=== PATIENT | female | born 1950 | race Two or more races ===

== ENCOUNTER 2022-09-10 08:18 | Inpatient (IN) | payer OTHER ==
[~2022-09-10] VITALS: Ht 152.4 cm; Wt 90.8 kg
[~2022-09-10 08:18] MED LIST: ENAL20TA8 PO; LEVO75TA6 PO; NAP500T PO
[2022-09-10] MEDS ORDERED: ceFAZolin 1GM/50ML 100 ML IV ONE (08:31)
[2022-09-10] MEDS ORDERED: EPINEPHrine HCL 1 MG/1 ML AMP ONE (10:37)
[2022-09-10] MEDS ORDERED: VANCOMYCIN HCL 1000 MG VL ONE (10:37)
[2022-09-10] MEDS ORDERED: ROPIVACAINE 0.5% (5MG/ML) 20ML AMPULE IJ ONE (10:38)
[2022-09-10] MEDS ORDERED: SODIUM CHLORIDE LOCK 10 ML ONE (11:14)
[2022-09-10] MEDS ORDERED: ePHEDrine SULFATE 50 MG/ML AMP ONE (11:33)
[2022-09-10] MEDS: TRANEXAMIC ACID 20 ML ONE ×2 (11:35→12:34)
[2022-09-10] MEDS ORDERED: LIDOCAINE 2% (LOCAL ANESTH.) PF 5ml SDV ONE (11:50)
[2022-09-10] MEDS ORDERED: KETOROLAC TROMETH 30 MG/ML 1ML VIAL ONE (11:50)
[2022-09-10] MEDS ORDERED: PROPOFOL 10 MG/ML 20 ML IV ONE ×2 (11:50→12:02)
[2022-09-10] MEDS ORDERED: GLYCOPYRROLATE 0.2 MG/ML 1ML VIAL ONE (11:50)
[2022-09-10] MEDS ORDERED: ONDANSETRON HCL 4 MG/2 ML VIAL ONE (11:50)
[2022-09-10] MEDS ORDERED: ONDANSETRON HCL 4 MG/2 ML VIAL IV PRN (13:00)
[2022-09-10] MEDS ORDERED: oxyCODONE HCL 5MG TAB PO PRN ×2 (13:00)
[2022-09-10] MEDS ORDERED: ceFAZolin 2 GM in D5W 5% 100 ML IV SCH (14:00)
[2022-09-10] MEDS ORDERED: HYDROmorphone HCL 2 MG/ML VL/or syr ONE (15:51)
[2022-09-10] MEDS: HYDROmorphone HCL 2 MG/ML VL/or syr IV PRN ×2 (15:55→16:10)
[2022-09-10 16:20] VITALS: BP 163/86
[2022-09-10] MEDS ORDERED: PHENYLEPHRINE HCL 10 MG/ML VL IV ONE (16:29)
[2022-09-10] MEDS ORDERED: KETAMINE 50mg/ML 10ml Vial (500mg/10ml) IV ONE (16:29)
[2022-09-10 16:35] VITALS: BP 163/86
[2022-09-10] MEDS: KETOROLAC TROMETH 30 MG/ML 1ML VIAL IV SCH (19:46)
[2022-09-10] MEDS: ACETAMINOPHEN 325 MG TAB PO SCH (19:47)
[2022-09-10 20:00] VITALS: BP 135/68
[2022-09-10] MEDS: ceFAZolin 2 GM in D5W 5% 100 ML IV SCH (20:46)
[2022-09-10] MEDS: D5W/LACTATED RINGERS 1,000 ML IV SCH ×2 (20:47→23:00)
[2022-09-10] MEDS: DOCUSATE SOD 100 MG CAP PO SCH (21:13)
[2022-09-10] MEDS: ASPirin 81 mg TAB PO SCH (21:13)
[2022-09-10] MEDS: PREGABALIN 25 MG CAP PO SCH (21:14)
[2022-09-10 22:00] VITALS: BP 135/68
[2022-09-10] MEDS ORDERED: SENNA 8.6 MG TAB PO SCH (22:00)
[2022-09-11] MEDS: KETOROLAC TROMETH 30 MG/ML 1ML VIAL IV SCH ×3 (00:27→11:54)
[2022-09-11] MEDS: ACETAMINOPHEN 325 MG TAB PO SCH ×3 (00:27→11:54)
[2022-09-11 05:00] VITALS: BP_SYST 133
[2022-09-11] MEDS: ceFAZolin 2 GM in D5W 5% 100 ML IV SCH (05:39)
[2022-09-11 06:08] LABS: Basophils # (auto) 0 10 ^3/uL (0-0.2); Basophils % (auto) 0.1 % (0.0-2.0); Eosinophils # (auto) 0 10 ^3/uL (0-0.8); Hematocrit 37.4 % (36.0-46.0); Hemoglobin 12.1 g/dL (12.2-16.2); Lymphocytes # (auto) 1.1 10 ^3/uL (0.4-5.4); Lymphocytes % (auto) 6.4 % (10.0-50.0); Mean Corpuscular Hemoglobin 27.4 pg (28.0-32.0); Mean Corpuscular Hgb Conc. 32.3 g/dL (32.0-36.0); Mean Corpuscular Volume 84.8 fL (80.0-100.0); Monocytes # (auto) 1.1 10 ^3/uL (0-1.3); Monocytes % (auto) 6.7 % (0.0-12.0); Neutrophils # (auto) 14.5 10 ^3/uL (1.6-8.6); Neutrophils % (auto) 86.8 % (37.0-80.0); Red Blood Cells 4.41 10^6/uL (4.0-5.20); Red Cell Distribution Width 14.3 % (11.8-14.3); White Blood Cell 16.7 10^3/uL (4.4-10.8)
[2022-09-11 06:31] LABS: BUN/Creatinine Ratio 20.2; Calcium 8.7 mg/dL (8.5-10.1); Potassium 4.2 mmol/L (3.5-5.1)
[2022-09-11 08:00] VITALS: BP 137/63
[2022-09-11 09:00] VITALS: BP 148/74
[2022-09-11] MEDS: PREGABALIN 25 MG CAP PO SCH (09:02)
[2022-09-11] MEDS: DOCUSATE SOD 100 MG CAP PO SCH (09:02)
[2022-09-11] MEDS: ASPirin 81 mg TAB PO SCH (09:03)
[2022-09-11] MEDS: D5W/LACTATED RINGERS 1,000 ML IV SCH (09:03)
[2022-09-11] MEDS ORDERED: LEVOTHYROXINE SODIUM PO SCH (10:00)
[2022-09-11] MEDS ORDERED: PANTOPRAZOLE 40 MG TAB PO SCH (10:00)
[2022-09-11] MEDS ORDERED: ENALAPRIL MALEATE 10 MG TAB PO SCH (10:00)
[2022-09-11] MEDS ORDERED: ENALAPRIL MALEATE 20 MG PO SCH (10:00)
[2022-09-11 13:00] VITALS: BP 137/63
[2022-09-11 14:30] VITALS: BP 137/63
== END 2022-09-11 16:30 | disposition home health service (06) | DRG 470 ==
LOC: SUR 08:18 → OVERFLOW 13:00 → CENTRAL 16:45
PROVIDERS: ADMIT Orthopaedic Surgery; ATTEND Orthopaedic Surgery
PROC: 0SRC069 Replacement of Right Knee Joint with Oxidized Zirconium on Polyethylene Synthetic Substitute, Cemented, Open Approach (ICD-10-PCS; principal; 2022-09-10 10:57)
DX: M17.11 Unilateral primary osteoarthritis, right knee (principal); Z20.822 Contact with and (suspected) exposure to COVID-19
CPT/HCPCS: 36415; 73562; 80048; 85025; 86850; 86900; 86901; 97163; G0378; J0171; J0690; J1885; J2001; J2405; J2704; J7060

== ENCOUNTER 2024-10-08 08:41 | Emergency (ER) | payer OTHER ==
[~2024-10-08] VITALS: Ht 182.9 cm; Wt 72.0 kg
[~2024-10-08 08:41] MED LIST changes: +ENAL1TAB48 PO; -ENAL20TA8 PO
--- NOTE | 2024-10-08 09:21 | ED.PDOC ---
History of Present Illness HPI Comments 63 y.o female presents to the ED for a chief complaint of flu like symptoms that include cough, congestion, fever, chest discomfort, and dizziness that presented 2 days ago. Patient reports heart rate at home has been elevated via home pulse oximetry machine readings. Patient presents with SPO2 of 91-92% RA and was placed on 4LNC increasing saturation to 97%. Patient denies any at home oxygen use, nausea, vomiting, diarrhea, chills, or SOB. Chief Complaint: Flu like Time Seen by MD: 09:11 Reviewed Notes: Nurses Notes, Medications, Allergies Allergies: Coded Allergies: Latex (Unverified Allergy, Mild, hives, 09/09/22) Home Meds Reported Medications Naproxen (NAPROSYN TABLET) 500 Mg Tb, 500 MG PO BID, TAB 09/09/22 Levothyroxine Sodium (Levothyroxine Sodium) 75 Mcg Tab, 32 MCG PO DAILY, TAB 09/09/22 Enalapril Maleate (Enalapril Maleate) 20 Mg Tab, 20 MG PO DAILY, TAB 09/09/22 Information Source: Patient, Spouse Mode of Arrival: Ambulatory Severity: Moderate Timing: Days (2) Duration: Since onset Past Medical History PAST MEDICAL HISTORY: Denies Surgical History: Denies all surgeries AGRICULTURAL EDUCATION INSTRUCTOR History: No Pertinent AGRICULTURAL EDUCATION INSTRUCTOR History Family History Family History: Reviewed,noncontributory to illness Social History Smoker: Non-Smoker Alcohol: Denies ETOH Use Drugs: Denies Drug Use Lives In: Home Constitutional: reports: fever; denies: chills, diaphoresis, fatigue, malaise, sweats, weakness, others EENTM: reports: nose congestion; denies: blurred vision, double vision, ear bleeding, ear discharge, ear drainage, ear pain, ear ringing, eye pain, eye redness, hearing loss, mouth pain, mouth swelling, nasal discharge, nose bleeding, nose pain, photophobia, tearing, throat pain, throat swelling, voice changes, others Respiratory: reports: cough; denies: hemoptysis, orthopnea, SOB at rest, shortness of breath, SOB with excertion, stridor, wheezing, others Cardiovascular: reports: chest pain; denies: dizzy spells, diaphoresis, Dyspnea on exertion, edema, irregular heart beat, left arm pain, lightheadedness, palpitations, PND, syncope, others Gastrointestinal: denies: abdomen distended, abdominal pain, blood streaked bowels, constipated, diarrhea, dysphagia, difficulty swallowing, hematemesis, melena, nausea, poor appetite, poor fluid intake, rectal bleeding, rectal pain, vomiting, others Genitourinary: denies: abnormal vagina bleeding, burning, dyspareunia, dysuria, flank pain, frequency, hematuria, incontinence, pain, , vagina discharge, urgency, others Neurological: reports: dizziness; denies: fainting, headache, left sided numbness, left sided weakness, numbness, paresthesia, pre-existing deficit, right sided numbness, right sided weakness, seizure, speech problems, tingling, tremors, weakness, others Musculoskeletal: denies: back pain, gout, joint pain, joint swelling, muscle pain, muscle stiffness, neck pain, others Integumetry: denies: bruises, change in color, change in hair/nails, dryness, laceration, lesions, lumps, rash, wounds, others Allergic/Immunocompromised: denies: Difficulty Healing, Frequent Infections, Hives, Itching, others Hematologic/Lymphatic: denies: anemia, blood clots, easy bleeding, easy bruising, swollen glands, others Endocrine: denies: excessive hunger, excessive sweating, excessive thirst, excessive urination, flushing, intolerance to cold, intolerance to heat, unexplained weight gain, unexplained weight loss, others Psychiatric: denies: anxiety, bipolar disorder, depression, hopeless, panic disorder, schizophrenia, sleepless, suicidal, others All Other Systems: Reviewed and Negative Physical Exam General Appearance: No Apparent Distress, Normal HEENT: Normal ENT Inspection, PERRL/EOMI Neck: Full Range of Motion, Non-Tender Respiratory: Lungs Clear, No Respiratory Distress, Normal Breath Sounds Cardiovascular: No Edema, No JVD, No Murmur, No Gallop, Normal Peripheral Pulses, Regular Rate/Rhythm, Tachycardia Breast Exam: Deferred Gastrointestinal: No Organomegaly, Non Tender, No Pulsatile Mass, Normal Bowel Sounds, Soft Genitalia: Deferred Pelvic: Deferred Rectal: Deferred Extremities: No calf tenderness, Normal capillary refill, Normal inspection, Normal range of motion, Non-tender, No pedal edema Neurologic: Alert, blanket cutter hand II-XII nml as Tested, No Motor Deficits, Normal Affect, Normal Mood, No Sensory Deficits Cerebellar Function: Normal Reflexes: Normal Skin: Dry, Normal Color, Warm Peripheral Pulses: 1+ carotid (R), 1+ carotid (L) Lymphatic: No Adenopathy Was a procedure done? Was a procedure done?: No Differential Dx Considerations may include: Influenza, Viral Syndrome, Dehydration, URI X-Ray, Labs, Meds, VS Vital Signs Date Time Temp Pulse Resp B/P (MAP) Pulse Ox O2 Delivery O2 Flow Rate FiO2 10/08/24 15:49 99.5 96 16 117/78 (91) 99 99.5 10/08/24 13:00 99.5 110 16 123/68 (86) 98 99.5 10/08/24 10:50 99.5 115 16 127/79 (95) 98 99.5 10/08/24 08:50 129 10/08/24 08:47 100.0 128 20 145/76 (99) 97 Lab Test 10/08/24 14:54 10/08/24 13:07 10/08/24 10:21 Range/Units Influenza Type A Antigen Negative Negative Influenza Type B Antigen Negative Negative SARS-CoV-2 Antigen (Rapid) Negative NEGATIVE Urine Color Yellow Yellow Urine Clarity Clear Clear Urine pH 5.5 5.0-9.0 Urine Specific [place] 1.027 1.001-1.035 Urine Protein 1+ H Negative Urine Ketones 1+ H Negative Urine Blood Negative Negative /uL Urine Nitrite Negative Negative Urine Bilirubin Negative Negative Urine Urobilinogen Normal Negative mg/dL Urine Leukocyte Esterase Negative Negative /uL Urine RBC 4 0 - 4 /hpf Urine WBC 1 0 - 5 /hpf Urine Squamous Epithelial Cells Few <5 /hpf Urine Bacteria None seen None Seen /hpf Urine Mucus Few None Seen Urine Glucose Normal Normal mg/dL White Blood Count 6.5 4.4-10.8 10^3/uL Red Blood Count 5.18 4.0-5.20 10^6/uL Hemoglobin 16.0 12.2-16.2 g/dL Hematocrit 46.8 H 36.0-46.0 % Mean Corpuscular Volume 90.3 80.0-100.0 fL Mean Corpuscular Hemoglobin 30.9 28.0-32.0 pg Mean Corpuscular Hemoglobin Concent 34.2 32.0-36.0 g/dL Red Cell Distribution Width 13.5 11.8-14.3 % Platelet Count 181 140-450 10^3/uL Mean Platelet Volume 10.5 6.9-10.8 fL Neutrophils (%) (Auto) 63.8 37.0-80.0 % Lymphocytes (%) (Auto) 24.3 10.0-50.0 % Monocytes (%) (Auto) 11.5 0.0-12.0 % Eosinophils (%) (Auto) 0.0 0.0-7.0 % Basophils (%) (Auto) 0.4 0.0-2.0 % Neutrophils # (Auto) 4.1 1.6-8.6 10 ^3/uL Lymphocytes # (Auto) 1.6 0.4-5.4 10 ^3/uL Monocytes # (Auto) 0.7 0-1.3 10 ^3/uL Eosinophils # (Auto) 0 0-0.8 10 ^3/uL Basophils # (Auto) 0 0-0.2 10 ^3/uL Nucleated Red Blood Cells 0.4 % Prothrombin Time 11.2 9.3-11.8 sec Prothrombin Time INR 1.06 0.9-1.15 Activated Partial Thromboplast Time 29.2 24.5-34.5 SEC D-Dimer, Quantitative 0.44 0.0-0.49 mg/L FEU Sodium Level 139 136-145 mmol/L Potassium Level 4.0 3.5-5.1 mmol/L Chloride Level 105 98-107 mmol/L Carbon Dioxide Level 28 20-31 mmol/L Anion Gap 6 5-15 Blood Urea Nitrogen 12 9-23 mg/dL Creatinine 1.03 H 0.550-1.02 mg/dL Glomerular Filtration Rate Calc 60 >90 mL/min BUN/Creatinine Ratio 11.7 10.0-20.0 Serum Glucose 107 H 74-106 mg/dL Calcium Level 10.3 8.7-10.4 mg/dL Magnesium Level 2.1 1.6-2.6 mg/dL Total Bilirubin 1.0 0.2-1.0 mg/dL Aspartate Amino Transferase (AST) 56 H 13-40 U/L Alanine Aminotransferase (ALT) 44 H 7-40 U/L Alkaline Phosphatase 78 46-116 U/L Troponin I High Sensitivity < 3 L </=34 ng/L Total Protein 8.0 5.7-8.2 g/dL Albumin 5.1 H 3.2-4.8 g/dL Thyroid Stimulating Hormone (TSH) 0.89 0.55-4.78 uIU/mL Current Medications Medications (Trade) Dose Ordered Sig/Ludy Route Start Time Stop Time Status Last Admin Aspirin 162 mg ONCE ONCE PO 10/08/24 10:00 10/08/24 10:01 DC 10/08/24 10:00 Sodium Chloride 1,000 ml @ 150 mls/hr [id number] ONCE IV 10/08/24 10:00 10/08/24 16:39 DC 10/08/24 10:00 CHEST RADIOGRAPH Indication: Chest pain tachycardia Technique: Frontal and lateral view of the chest was obtained Comparison: None FINDINGS: Lines and Tubes: None Lungs: Clear Pleura: No effusion. No pneumothorax. Cardiomediastinal contours: Unremarkable Bones: Unremarkable IMPRESSION: No evidence of acute disease. X-Ray, Labs, Meds, VS Comment Course in the emergency department eventful patient came in because of flu syndrome and tachycardia Blood pressure 145/76 Chest x-ray normal EKG shows sinus tachycardia at 129 with right bundle-branch block CBC normal INR 1.06 D-dimer 0.44 Magnesium 2.1 Troponin 3.0 TSH 0.89 Urine negative INFLUENZA A NEGATIVE INFLUENZA B NEGATIVE COVID-19 NEGATIVE Re-evaluation PATIENT IS FEELING MUCH BETTER HER PULSE 9 IS AT 90 PATIENT WILL BE DISCHARGED HOME TO FOLLOW UP WITH HER PCP Time of 1ST Reevaluation: 09:17 Reevaluation 1ST: Unchanged Time of 2ND Reevaluation: 16:49 Consultation: PCP Patient Education/Counseling: Diagnosis, Treatment, Prognosis, Need For Follow Up Family Education/Counseling: Diagnosis, Treatment, Prognosis, Need For Follow Up Departure 1 Departure Time of Disposition: 16:50 Impression: Primary Impression: Tachycardia determined by examination of pulse Additional Impressions: Viral syndrome URI with cough and congestion Lab test negative for COVID-19 virus Influenza A virus not detected Influenza B virus not detected Ruled Out: Pulmonary embolism, Pneumonia Disposition: 01 HOME / SELF CARE / HOMELESS Condition: Fair Additional Instructions: PUSH FLUIDS AND FOLLOW UP WITH YOUR PCP e-Prescriptions Azithromycin (Zithromax) 500 Mg Tab 1 TAB PO DAILY for 5 Days, #5 TAB Prov: KYUNG MULLINS MD 10/08/24 [id number] W/ APAP (Robitussin Severe Mul... [id number] mg/10Ml) 1 Liq Liq 1 LIQ PO BID for 10 Days, #300 LIQ Prov: KYUNG MULLINS MD 10/08/24 Discharged With: Self, Spouse Critical Care Note Critical Care Time?: No Stability Stability form required: No Heart Score Heart Score: Heart Score Response (Comments) Value History Slightly Suspicious 0 EKG Repolarization Disturb 1 Age >65 2 Risk Factors No known risk factors 0 Troponin Normal limit 0 Total 3 I personally scribed for KYUNG MULLINS MD ([email or web address]) on 10/08/24 at 09:21. Electronically submitted by Margarita Mcpherson ([email or web address]). I personally scribed for KYUNG MULLINS MD ([email or web address]) on 10/08/24 at 11:03. Electronically submitted by Margarita Mcpherson ([email or web address]). KYUNG MULLINS MD Oct 08, 2024 09:21
[2024-10-08] MEDS: ASPirin 81 mg TAB PO ONE (10:00)
[2024-10-08] MEDS: SODIUM CHLORIDE 0.9% 1,000 ML IV ONE (10:00)
--- NOTE | 2024-10-08 10:25 | DVH ---
CHEST RADIOGRAPH Indication: Chest pain tachycardia Technique: Frontal and lateral view of the chest was obtained Comparison: None FINDINGS: Lines and Tubes: None Lungs: Clear Pleura: No effusion. No pneumothorax. Cardiomediastinal contours: Unremarkable Bones: Unremarkable IMPRESSION: No evidence of acute disease.
[2024-10-08 10:54] LABS: Alkaline Phosphatase 78 U/L (46-116); Anion Gap 6 (5-15); BUN/Creatinine Ratio 11.7 (10.0-20.0); Blood Urea Nitrogen 12 mg/dL (9-23); Calcium 10.3 mg/dL (8.7-10.4); Carbon Dioxide 28 mmol/L (20-31); Chloride 105 mmol/L (98-107); Magnesium 2.1 mg/dL (1.6-2.6); Sodium 139 mmol/L (136-145)
[2024-10-08 11:07] LABS: Alanine Aminotransferase 44 U/L (7-40); Albumin 5.1 g/dL (3.2-4.8); Aspartate Aminotransferase 56 U/L (13-40); Glucose 107 mg/dL (74-106)
[2024-10-08 11:25] LABS: Basophils # (auto) 0 10 ^3/uL (0-0.2); Basophils % (auto) 0.4 % (0.0-2.0); Eosinophils # (auto) 0 10 ^3/uL (0-0.8); Hematocrit 46.8 % (36.0-46.0); Lymphocytes # (auto) 1.6 10 ^3/uL (0.4-5.4); Lymphocytes % (auto) 24.3 % (10.0-50.0); Mean Corpuscular Hemoglobin 30.9 pg (28.0-32.0); Mean Corpuscular Hgb Conc. 34.2 g/dL (32.0-36.0); Mean Corpuscular Volume 90.3 fL (80.0-100.0); Monocytes # (auto) 0.7 10 ^3/uL (0-1.3); Monocytes % (auto) 11.5 % (0.0-12.0); Neutrophils # (auto) 4.1 10 ^3/uL (1.6-8.6); Neutrophils % (auto) 63.8 % (37.0-80.0); Nucleated Red Blood Cells % 0.4 %; Platelet Count (auto) 181 10^3/uL (140-450); Red Blood Cells 5.18 10^6/uL (4.0-5.20); Red Cell Distribution Width 13.5 % (11.8-14.3); White Blood Cell 6.5 10^3/uL (4.4-10.8)
[2024-10-08 11:41] LABS: INR 1.06 (0.9-1.15); Partial Thromboplastin Time 29.2 SEC (24.5-34.5); Prothrombin Time 11.2 sec (9.3-11.8)
[2024-10-08 13:55] LABS: Urine Bacteria None Seen /hpf (None Seen)
[2024-10-08 14:34] LABS: Urine Blood Negative /uL (Negative); Urine Clarity Clear (Clear); Urine Color Yellow (Yellow); Urine Mucus FEW (None Seen); Urine Protein, UAD 1+ (Negative); Urine Specific Gravity 1.027 (1.001-1.035); Urine Squamous Epithelial Cell FEW /hpf (<5); Urine Urobilinogen Normal (Negative); Urine WBC 1 /hpf (0 - 5); Urine pH 5.5 (5.0-9.0)
[2024-10-08 16:35] LABS: COVID19 ANTIGEN SOFIA FIA NEGATIVE (NEGATIVE); Rapid Influenza A Negative (Negative); Rapid Influenza B Negative (Negative)
[2024-10-08] MEDS ORDERED: PHEN1LIQ50 PO (16:56)
[2024-10-08] MEDS ORDERED: AZIT500T PO (16:56)
[2024-10-08 17:54] VITALS: BP 130/76; PULSE 82; RESP 16; TEMP 97.9; O2SAT 96
--- NOTE | 2024-10-12 14:25 | ECG ---
[facility] Test Date: 2024-10-08 Test Time: 08:50:58 Pat Name: MARIBETH PHILLIPS Department: ER Room: Gender: F Bull Rider: NGOC : 1952-09-20 Requested By: KYUNG MULLINS Order Number: [id number] Reading MD: Ronni Currie Measurements Intervals [place] Rate: 129 P: 14 MA: 122 QRS: -165 QRSD: 143 T: 6 QT: 332 QTc: 487 Interpretive Statements Sinus tachycardia RBBB and LPFB Electronically Signed On 10-12-2024 17:52:31 PST by Ronni Currie Please click the below link to view image of tracing.
== END 2024-10-08 17:54 | disposition home or self-care (01) ==
LOC: ER 08:41 → EDBD 08:41 → ER 17:54
DX: B34.9 Viral infection, unspecified (principal); J06.9 Acute upper respiratory infection, unspecified; R05.9 Cough, unspecified; R09.81 Nasal congestion; R00.0 Tachycardia, unspecified; Z20.822 Contact with and (suspected) exposure to COVID-19; Z79.899 Other long term (current) drug therapy; Z91.041 Radiographic dye allergy status
CPT/HCPCS: 36415; 71046; 80053; 81001; 83735; 84443; 84484; 85025; 85379; 85610; 85730; 87426; 87804; 93005; 96360; 96361; 99285; J7030